=== PATIENT | male | born 1990 | race Caucasian/White ===

== ENCOUNTER 2021-03-27 17:35 | Observation (INO) | payer BC ==
[2021-03-27 20:12] LABS: Urine Blood Negative (Negative); Urine Glucose Negative (Negative); Urine Protein Negative (Negative); Urine Specific Gravity >=1.030 (1.005-1.030)
[2021-03-27 20:24] LABS: Absolute Lymphocytes (CBC) 1.9 K/uL (0.7-4.9); Basophils % 0.1 % (0-1.3); Hematocrit 45.9 % (39.6-49.0); Lymphocytes % 13.3 % (15.3-44.8); MPV 9.3 fL (7.6-11.3); RBC Red Blood Cell Count 5.59 M/uL (4.33-5.43)
[2021-03-27] MEDS ORDERED: NA CHLORIDE 0.9% 1,000 ML ONE ×2 (20:34→22:38)
[2021-03-27 20:52] LABS: ALT/SGPT 67 U/L (12-78); AST/SGOT 26 U/L (15-37); Albumin 4.6 g/dL (3.4-5.0); Alkaline Phosphatase 93 U/L (45-117); BUN Blood Urea Nitrogen 15 mg/dL (7-18); Bicarbonate 27 mmol/L (21-32); Bilirubin Direct < 0.1 mg/dL (0-0.2); Bilirubin Total 0.6 mg/dL (0.2-1.0); Glucose Level 100 mg/dL (74-106); Lipase 66 U/L (73-393); Protein, Total 8.1 g/dL (6.4-8.2); Sodium Level 138 mmol/L (136-145)
--- NOTE | 2021-03-27 21:46 | RAD REPORT ---
EXAM DESCRIPTION: CT - Abdomen Pelvis W Contrast - 03/27/2021 9:25 pm CLINICAL HISTORY: ABD PAIN COMPARISON: No comparisons TECHNIQUE: Biphasic, helical CT imaging of the abdomen and pelvis was performed following 100 ml non -ionic IV contrast. No oral contrast administered. All CT scans are performed using dose optimization technique as appropriate and may include automated exposure control or mA/KV adjustment according to patient size. FINDINGS: No suspicious findings in the lung bases. The liver, spleen, and pancreas show no suspicious findings. Gallbladder and biliary tree are also wi thout suspicious finding. Symmetric renal function is seen with no hydronephrosis or suspicious renal mass. No pyelonephritis o r acute parenchymal process. No bladder abnormalities. No adrenal abnormalities. No stomach or small bowel abnormality. The appendix is abnormal measuring 10 mm in diameter wall thic kening and edema. Periappendiceal inflammatory stranding is present. Mesenteric lymph nodes are seen in the right lower quadrant. There are central mesenteric small lymph nodes and multiple periaortic s mall reactive type lymph nodes. No free air or pneumatosis. No mass or bulky lymphadenopathy. Small fat only umbilical hernia is p resent 15 mm in diameter. No suspicious bony findings. IMPRESSION: Acute appendicitis is noted with the appendix in classic right lower quadrant positionin g. No abscess, free air or other complicating factor. Numerous reactive type periaortic/pericaval, central mesentery and right lower quadrant lymph nodes.
--- NOTE | 2021-03-27 22:02 | ER ---
Nurse's Notes [facility] Name: Franklin Garcia Age: 31 yrs Sex: Male : 1990 Arrival Date: 03/27/2021 Time: 17:39 Bed 14 Private MD: Diagnosis: Unspecified acute appendicitis Presentation: 03/27 17:48 Chief complaint: Patient states: RLQ pain started 0930 this morning. [place] feverish this ca1 morning. Denies N/V/D. Denies urinary S/S. Coronavirus screen: Client denies travel out of the [place] in the last 14 days. At this time, the client does not indicate any symptoms associated with coronavirus-19. Ebola Screen: Patient negative for fever greater than or equal to 101.5 degrees Fahrenheit, and additional compatible Ebola Virus Disease symptoms Patient denies exposure to infectious person. Patient denies travel to an Ebola-affected area in the 21 days before illness onset. No symptoms or risks identified at this time. Initial Sepsis Screen: Does the patient meet any 2 criteria? No. Patient's initial sepsis screen is negative. Does the patient have a suspected source of infection? No. Patient's initial sepsis screen is negative. Risk Assessment: Do you want to hurt yourself or someone else? Patient reports no desire to harm self or others. Onset of symptoms was March 27, 2021. 17:48 Method Of Arrival: Ambulatory ca1 17:48 Acuity: ZABRINA 3 ca1 Historical: - Allergies: 17:50 No Known Allergies; ca1 - Home Meds: 17:50 None [Active]; ca1 - PMHx: 17:50 None; ca1 - PSHx: 17:50 None; ca1 - Immunization history:: Client reports having NOT received the Covid vaccine. Flu vaccine is up to date. - Social history:: Smoking status: Patient denies any tobacco usage or history of. Screenin:00 Abuse screen: Denies threats or abuse. Denies injuries from another. Nutritional bs2 screening: No deficits noted. Tuberculosis screening: No symptoms or risk factors identified. Fall Risk None identified. Assessment: 20:00 General: Appears in no apparent distress. obese, well groomed, well developed, well bs2 nourished, Behavior is calm, cooperative, appropriate for age. Pain: Complains of pain in umbilical area and right lower quadrant Pain currently is 2 out of 10 on a pain scale. Pain began 2-3 days ago. Cardiovascular: No deficits noted. Respiratory: No deficits noted. Reports. GI: Bowel sounds present X 4 quads. Abd is soft X 4 quads Abdomen is tender to palpation in right lower quadrant. : No deficits noted. No signs and/or symptoms were reported regarding the genitourinary system. EENT: No deficits noted. No signs and/or symptoms were reported regarding the EENT system. Derm: No deficits noted. No signs and/or symptoms reported regarding the dermatologic system. Musculoskeletal: No deficits noted. No signs and/or symptoms reported regarding the musculoskeletal system. Vital Signs: 17:48 BP 136 / 89; Pulse 102; Resp 18 S; Temp 98.5(TE); Pulse Ox 98% on R/A; Weight 108.86 kg ca1 (R); Height 5 ft. 11 in. (180.34 cm) (R); Pain 610; 03/28 00:09 BP 125 / 68 RA Sitting (auto/lg); Pulse 78 MON; Resp 16 S; Temp 97.6(O); Pulse Ox 96% bs2 on R/A; Pain 0/10; 03/27 17:48 Body Mass Index 33.47 (108.86 kg, 180.34 cm) ca1 ED Course: 03/27 17:39 Patient arrived in ED. rg4 17:50 Triage completed. ca1 17:50 Arm band placed on right wrist. ca1 19:49 Randy Carrera NP is PHCP. pm1 19:49 Roberto Kumar MD is Attending Physician. pm1 19:52 Osiris Hernandez, SHAY is Primary Nurse. bs2 20:00 Patient has correct armband on for positive identification. Call light in reach. Side bs2 rails up X 1. Pulse ox on. NIBP on. 20:00 No provider procedures requiring assistance completed. Inserted saline lock: 20 gauge bs2 in right antecubital area, using aseptic technique. 20:05 CBC with Automated Diff Sent. bs2 20:05 Basic Metabolic Panel Sent. bs2 20:05 Basic Metabolic Panel Sent. bs2 20:05 CBC with Diff Sent. bs2 20:05 Hepatic Function Sent. bs2 20:05 Lipase Sent. bs2 21:24 CT Abd/Pelvis - IV Contrast Only In Process Unspecified. EDMS 22:01 Ankur Garcia PA is Hospitalizing Provider. pm1 22:56 COVID-19 : Document "Date of Symptom Onset" if Symptomatic. Sent. bs2 23:48 CORONAVIRUS Sent. bs2 Administered Medications: 20:16 Drug: NS 0.9% 1000 ml Route: IV; Rate: 1000 ml; Site: right antecubital; bs2 22:44 Follow up: IV Status: Completed infusion; IV Intake: 1000ml bs2 22:44 Drug: Zosyn (piperacillin-tazobactam) 3.375 grams Route: IVPB; Infused Over: 60 mins; bs2 Site: left antecubital; 23:48 Follow up: IV Status: Completed infusion; IV Intake: 250ml bs2 22:44 Drug: NS 0.9% 1000 ml Route: IV; Rate: 125 ml/hr; Site: left antecubital; bs2 Intake: 22:44 IV: 1000ml; Total: 1000ml. bs2 23:48 IV: 250ml; Total: 1250ml. bs2 Outcome: 22:01 Decision to Hospitalize by Provider. pm1 03/28 14:28 Patient left the ED. ss Signatures: Dispatcher [employer] EDMS Magui Means RN RN ss Randy Carrera, INTEGRATED CIRCUIT FABRICATOR INTEGRATED CIRCUIT FABRICATOR pm1 Laura Cuevas rg4 Ginger Hilliard RN RN ca1 Osiris Hernandez RN RN bs2 Corrections: (The following items were deleted from the chart) 03/27 17:50 17:50 Home Meds: Unable to obtain; ca1 ca1
--- NOTE | 2021-03-27 22:02 | EDPHYS ---
Physician Documentation [facility] Name: Franklin Garcia Age: 31 yrs Sex: Male : 1990 Arrival Date: 03/27/2021 Time: 17:39 Bed 14 Private MD: MYNOR Physician Roberto Kumar HPI: 03/27 20:03 This 31 yrs old Male presents to ER via Ambulatory with complaints of pm1 Abdominal Pain. 20:03 The patient presents with abdominal pain right lower quadrant. Onset: The pm1 symptoms/episode began/occurred this morning. The symptoms do not radiate. Associated signs and symptoms: none. Pertinent negatives: nausea, vomiting, and diarrhea, chest pain, dysuria, fever, shortness of breath. The symptoms are described as sharp. Modifying factors: The symptoms are alleviated by nothing, the symptoms are aggravated by nothing. Severity of pain: in the emergency department the pain is actually worse. The patient has not experienced similar symptoms in the past. The patient has not recently seen a physician, the patient's primary care provider is Dr. Johnnie Sexton. NPO since 1600 today. Historical: - Allergies: 17:50 No Known Allergies; ca1 - Home Meds: 17:50 None [Active]; ca1 - PMHx: 17:50 None; ca1 - PSHx: 17:50 None; ca1 - Immunization history:: Client reports having NOT received the Covid vaccine. Flu vaccine is up to date. - Social history:: Smoking status: Patient denies any tobacco usage or history of. ROS: 20:03 Constitutional: Negative for fever, chills, and weight loss, Cardiovascular: Negative pm1 for chest pain, palpitations, and edema, Respiratory: Negative for shortness of breath, cough, wheezing, and pleuritic chest pain. 20:03 Back: Negative for injury and pain, : Negative for injury, bleeding, discharge, and swelling, MS/Extremity: Negative for injury and deformity, Skin: Negative for injury, rash, and discoloration, Neuro: Negative for headache, weakness, numbness, tingling, and seizure. 20:03 Abdomen/GI: Positive for abdominal pain, Negative for nausea, vomiting, and diarrhea. 20:03 All other systems are negative. Exam: 20:03 Constitutional: This is a well developed, well nourished patient who is awake, alert, pm1 and in no acute distress. Head/Face: Normocephalic, atraumatic. 20:03 Back: No spinal tenderness. No costovertebral tenderness. Full range of motion. Skin: Warm, dry with normal turgor. Normal color with no rashes, no lesions, and no evidence of cellulitis. MS/ Extremity: Pulses equal, no cyanosis. Neurovascular intact. Full, normal range of motion. 20:03 Eyes: Exam is negative for acute changes, Periorbital structures: appear normal, Extraocular movements: no acute changes, Conjunctiva: no acute changes, no injection, Sclera: no acute changes, icterus, is not appreciated. 20:03 ENT: Mouth: Lips: normal, Oral mucosa: normal, pink and intact, moist. 20:03 Cardiovascular: Exam negative for acute changes, Rate: normal, Rhythm: regular, Pulses: no pulse deficits are appreciated. 20:03 Respiratory: Exam negative for acute changes, respiratory distress, shortness of breath. 20:03 Abdomen/GI: Inspection: abdomen appears normal, Palpation: soft, in all quadrants, mild abdominal tenderness, in the right lower quadrant. 20:03 Neuro: Exam negative for acute changes, Orientation: is normal, Mentation: is normal, Motor: is normal, moves all fours, Sensation: is normal, no obvious gross deficits. Vital Signs: 17:48 BP 136 / 89; Pulse 102; Resp 18 S; Temp 98.5(TE); Pulse Ox 98% on R/A; Weight 108.86 kg ca1 (R); Height 5 ft. 11 in. (180.34 cm) (R); Pain 6/10; 03/28 00:09 BP 125 / 68 RA Sitting (auto/lg); Pulse 78 MON; Resp 16 S; Temp 97.6(O); Pulse Ox 96% bs2 on R/A; Pain 0/10; 03/27 17:48 Body Mass Index 33.47 (108.86 kg, 180.34 cm) ca1 MDM: 03/27 19:49 Patient medically screened. pm1 19:57 ED course: Patient offered pain medications and he refused. pm1 21:45 Counseling: I had a detailed discussion with the patient and/or guardian regarding: the pm1 historical points, exam findings, and any diagnostic results supporting the discharge/admit diagnosis, lab results, radiology results, the need for further work-up and treatment in the hospital. 21:53 Data reviewed: vital signs. pm1 21:58 Physician consultation: Liam Apodaca MD was called at 21:58, was contacted at 21:58, pm1 regarding consult, patient's condition, would like medications started, Zosyn. 22:00 Physician consultation: Ankur SMITH was contacted at 22:00, regarding admission, pm1 and will see patient in ED. 22:01 ED course: Patient reports pain is tolerable and continues to refuse pain medications. pm03/27 19:54 Order name: Basic Metabolic Panel pm03/27 19:54 Order name: CBC with Diff pm03/27 19:54 Order name: Hepatic Function; Complete Time: 21:08 pm03/27 19:54 Order name: Lipase; Complete Time: 21:08 pm03/27 19:55 Order name: Basic Metabolic Panel; Complete Time: 21:08 ED03/27 19:55 Order name: CBC with Automated Diff; Complete Time: 20:30 ED03/27 20:12 Order name: Urine Dipstick-Ancillary; Complete Time: 20:23 ED03/27 22:27 Order name: COVID-19 : Document "Date of Symptom Onset" if Symptomatic. 2 03/27 23:12 Order name: CORONAVIRUS 03/28 00:06 Order name: SARS-COV-2 RT PCR; Complete Time: 01:12 03/28 06:05 Order name: CBC with Automated Diff; Complete Time: 14:15 03/28 06:25 Order name: Comprehensive Metabolic Panel; Complete Time: 14:15 03/28 06:25 Order name: Phosphorus; Complete Time: 14:15 03/28 06:25 Order name: Lipid Profile; Complete Time: 14:15 ED03/27 19:54 Order name: IV Saline Lock; Complete Time: 20:05 pm03/27 19:54 Order name: Labs collected and sent; Complete Time: 20:05 pm03/27 19:54 Order name: Urine Dipstick-Ancillary (obtain specimen); Complete Time: 20:16 pm03/27 19:55 Order name: CT Abd/Pelvis - IV Contrast Only; Complete Time: 21:53 pm1 03/27 21:57 Order name: NPO; Complete Time: 22:44 pm1 03/27 22:15 Order name: CONS Physician Consult EDWI 03/28 06:25 Order name: T4 Free; Complete Time: 14:15 EDMS 03/28 06:25 Order name: Magnesium; Complete Time: 14:15 EDMS 03/28 06:25 Order name: Thyroid Stimulating Hormone; Complete Time: 14:15 EDMS Administered Medications: 20:16 Drug: NS 0.9% 1000 ml Route: IV; Rate: 1000 ml; Site: right antecubital; bs2 22:44 Follow up: IV Status: Completed infusion; IV Intake: 1000ml bs2 22:44 Drug: Zosyn (piperacillin-tazobactam) 3.375 grams Route: IVPB; Infused Over: 60 mins; bs2 Site: left antecubital; 23:48 Follow up: IV Status: Completed infusion; IV Intake: 250ml bs2 22:44 Drug: NS 0.9% 1000 ml Route: IV; Rate: 125 ml/hr; Site: left antecubital; bs2 Disposition: 03/29 07:05 Co-signature as Attending Physician, Roberto Kumar MD I agree with the assessment and south plan of care. Disposition Summary: 03/27/21 22:01 Hospitalization Ordered Hospitalization Status: Observation pm1 Provider: Ankur Garcia pm1 Condition: Stable pm1 Problem: new pm1 Symptoms: have improved pm1 Bed/Room Type: Standard pm1 Location: Telemetry/MedSurg (observation)(03/28/21 14:03) pa Room Assignment: [facility](03/28/21 14:03) pa Diagnosis - Unspecified acute appendicitis pm1 Forms: - Medication Reconciliation Form pm1 - SBAR form pm1 Signatures: Dispatcher [employer] Roberto Méndez MD MD cha Garcia, Cindy RN RN Randy Schneider NP PET CARE ATTENDANT pm1 Adelita Garcia mt, Cheryl, RN RN ca1 Osiris Hernandez RN RN bs2 Corrections: (The following items were deleted from the chart) 03/27 17:50 17:50 Home Meds: Unable to obtain; ca1 ca1 22:27 22:01 Telemetry/MedSurg (observation) pm1 cg 22:27 22:01 pm1 03/28 14:03 03/27 22:27 [facility] ER HOLD cg mt 03/28 14:03/27 22:27 ERHOLD- cg mt
[2021-03-27] MEDS ORDERED: PIPERACIL/TAZO 3.375 GM VIAL IV ONE (22:36)
[2021-03-27] MEDS ORDERED: NA CHLORIDE 0.9% 250 ML ONE (22:36)
--- NOTE | 2021-03-28 03:48 | P.HP ---
Certification for Inpatient Patient admitted to: Inpatient With expected LOS: >2 Midnights Patient will require the following post-hospital care: None Practitioner: I am a practitioner with admitting privileges, knowledge of patient current condition, hospital course, and medical plan of care. Services: Services provided to patient in accordance with Admission requirements found in Title 42 Section 412.3 of the Code of Federal Regulations Patient History Date of Service: 03/27/21 Primary Care Provider: Darshan Reason for admission: appendicitis History of Present Illness: Mr. Garcia is a 31 yo M here today for RLQ abdominal pain. Pain initially began on Saturday and lasted for 8 hours before resolving. Today he felt a sharp pain in his umbilical area which migrated to lower right side and went from sharp to dull pain. Pain worse with movement and breathing. Relieved by bending over. Denies nausea, vomiting, fever. WBC 14.3. Ct scan shows acute appendicitis. Allergies No Known Allergies Allergy (Unverified 10/12/12 17:53) - Past Medical/Surgical History Diabetic: No Past Medical History: Patient denies medical history Past Surgical History: Patient denies surgical history - Family History Family History: Reviewed- Non-Contributory - Social History Smoking Status: Never smoker Alcohol use: Yes CD- Drugs: No Caffeine use: No Place of Residence: Home Review of Systems 10-point ROS is otherwise unremarkable Gastrointestinal: Abdominal Pain Physical Examination - Physical Exam General: Alert, In no apparent distress HEENT: Atraumatic, PERRLA, Mucous membr. moist/pink, EOMI, Sclerae nonicteric Neck: Supple, 2+ carotid pulse no bruit, No LAD, Without JVD or thyroid abnormality Respiratory: Clear to auscultation bilaterally, Normal air movement Cardiovascular: Regular rate/rhythm, Normal S1 S2 Gastrointestinal: Normal bowel sounds, Tenderness Musculoskeletal: No tenderness Integumentary: No rashes Neurological: Normal gait, Normal speech, Normal strength at 5/5 x4 extr, Normal tone, Normal affect Lymphatics: No axilla or inguinal lymphadenopathy - Studies Laboratory Data (last 24 hrs) 03/27/21 20:00: WBC 14.30 H, Hgb 15.8, Hct 45.9, Plt Count 226 03/27/21 20:00: Sodium 138, Potassium 4.0, BUN 15, Creatinine 0.97, Glucose 100, Total Bilirubin 0.6, AST 26, ALT 67, Alkaline Phosphatase 93, Lipase 66 L Assessment and Plan - Plan Assessment acute appendicitis Plan surgery consulted, NPO, continue IVF, continue IV abx, pain management as needed, SCDs Discharge Plan: Home Plan to discharge in: 48 Hours - Advance Directives Does patient have a Living Will: No Does patient have a Durable POA for Healthcare: No - Code Status/Comfort Care Code Status Assessed: Yes (full code ) Critical Care: No Time Spent Managing Pts Care (In Minutes): 70
[2021-03-28] MEDS ORDERED: NA CHLORIDE 0.9% 1,000 ML IV SCH (03:50)
[2021-03-28] MEDS ORDERED: ONDANSETRON 4 MG/2 ML VIAL IV PRN (03:50)
[2021-03-28] MEDS ORDERED: MORPHINE 2 MG/ML SYR IV PRN (03:50)
[2021-03-28] MEDS ORDERED: NA CHLORIDE 0.9% 1,000 ML ONE (04:48)
[2021-03-28 05:57] LABS: Basophils % 0.4 % (0-1.3); Hematocrit 43.5 % (39.6-49.0); Lymphocytes % 25.2 % (15.3-44.8); MPV 9.2 fL (7.6-11.3); RBC Red Blood Cell Count 5.18 M/uL (4.33-5.43)
[2021-03-28 06:24] LABS: ALT/SGPT 55 U/L (12-78); AST/SGOT 23 U/L (15-37); Albumin 3.9 g/dL (3.4-5.0); Alkaline Phosphatase 77 U/L (45-117); BUN Blood Urea Nitrogen 14 mg/dL (7-18); Bicarbonate 28 mmol/L (21-32); Bilirubin Total 0.9 mg/dL (0.2-1.0); Glucose Level 91 mg/dL (74-106); HDL Cholesterol 36 mg/dL (40-60); LDL Cholesterol, Calculated 127 (<130); Magnesium 2.2 mg/dL (1.8-2.4); Phosphorus 3.5 mg/dL (2.5-4.9); Potassium 3.9 mmol/L (3.5-5.1); Sodium Level 142 mmol/L (136-145)
[2021-03-28] MEDS ORDERED: PIPER/TAZO/NS 3.375gm 3.375 GM/100 ML BAG IVPB SCH ×2 (08:00→17:00)
[2021-03-28 08:35] VITALS: BMI 33.4
[2021-03-28] MEDS ORDERED: PIPERACIL/TAZO 3.375 GM VIAL IV ONE (09:00)
[2021-03-28] MEDS ORDERED: Ringers Lactate 1,000 ML IV ONE (13:35)
[2021-03-28] MEDS ORDERED: BUPIVACAINE 0.25% PF 30 ML VIAL ONE (13:40)
[2021-03-28] MEDS ORDERED: propofoL 200 MG/20 ML VIAL IV ONE (13:47)
[2021-03-28] MEDS ORDERED: ROCURONIUM 50 MG/5 ML VIAL IV ONE (13:47)
[2021-03-28] MEDS ORDERED: KETOROLAC 30 MG/ML INJ ONE (13:47)
[2021-03-28] MEDS ORDERED: ONDANSETRON 4 MG/2 ML VIAL ONE (13:47)
[2021-03-28] MEDS ORDERED: FENTANYL CITR 100 MCG/2 ML ONE ×2 (13:47→15:03)
[2021-03-28] MEDS ORDERED: dexAMETHasone 10 MG/ML VIAL ONE (13:47)
[2021-03-28] MEDS ORDERED: LIDOCAINE 2% MPF 5 ML VIAL ONE (13:47)
[2021-03-28] MEDS ORDERED: MIDAZOLAM HCL 2 MG/2 ML INJ ONE (13:47)
--- NOTE | 2021-03-28 14:31 | P.OP ---
Preoperative diagnosis: Acute non-perforated appendicitis Postoperative diagnosis: Acute non-perforated appendicitis Primary procedure: Laparoscopic Appendectomy Anesthesia: GETA + Local Estimated blood loss: <5cc Specimen: appendix Findings: Acute non-perforated appendicitis Complications: None Transferred to: Recovery Room Condition: Good
[2021-03-28] MEDS ORDERED: NEOSTIGMINE 1 MG/ML -5 ML ONE (14:50)
[2021-03-28] MEDS ORDERED: HYDROMORPHONE HCL 1 MG/ML INJ ONE (15:25)
[2021-03-28 15:42] VITALS: TEMP 97.7
[2021-03-28] MEDS ORDERED: HYDROCODONE/APAP 7.5/325 MG TAB PO ONE (16:00)
--- NOTE | 2021-03-28 16:12 | P.DS ---
Admission Date: 03/27/21 Discharge Date: 03/28/21 Primary Care Provider: Darshan Disposition: ROUTINE DISCHARGE Discharge Condition: GOOD Reason for Admission: appendicitis - Problems (1) Acute appendicitis Current Visit: Yes Status: Acute Brief History of Present Illness: 31-year-old gentleman with no known past medical history presented to the emergency department with a complaint of intermittent right lower quadrant pain which became worse, with involvement of the periumbilical area. CT abdomen and pelvis done in the emergency department demonstrated acute appendicitis. General surgery was consulted and patient hospitalized for further management. Hospital Course: Patient placed under observation on the medical floor and started on IV antibiotics and supportive measures with IV NS and IV morphine for pain. Patient seen by Dr. Apodaca and laparoscopic appendectomy performed. Patient d eemed stable for discharge after the surgery and was discharged from the recovery department. Vital Signs/Physical Exam: Temp Pulse Resp BP Pulse Ox 97.7 F 62 16 138/83 95 03/28/21 15:28 03/28/21 15:28 03/28/21 15:28 03/28/21 15:28 03/28/21 12:00 Laboratory Data at Discharge: WBC 8.00 K/uL (4.3-10.9) D 03/28/21 05:26 Hgb 14.6 g/dL (13.6-17.9) 03/28/21 05:26 Hct 43.5 % (39.6-49.0) 03/28/21 05:26 Plt Count 204 K/uL (152-406) 03/28/21 05:26 Sodium 142 mmol/L (136-145) 03/28/21 05:26 Potassium 3.9 mmol/L (3.5-5.1) 03/28/21 05:26 BUN 14 mg/dL (7-18) 03/28/21 05:26 Creatinine 0.94 mg/dL (0.55-1.3) 03/28/21 05:26 Glucose 91 mg/dL (74-106) 03/28/21 05:26 Phosphorus 3.5 mg/dL (2.5-4.9) 03/28/21 05:26 Magnesium 2.2 mg/dL (1.8-2.4) 03/28/21 05:26 Total Bilirubin 0.9 mg/dL (0.2-1.0) 03/28/21 05:26 AST 23 U/L (15-37) 03/28/21 05:26 ALT 55 U/L (12-78) 03/28/21 05:26 Alkaline Phosphatase 77 U/L (45-117) 03/28/21 05:26 Triglycerides 144 mg/dL (<150) 03/28/21 05:26 Cholesterol 192 mg/dL (<200) 03/28/21 05:26 HDL Cholesterol 36 mg/dL (40-60) L 03/28/21 05:26 Cholesterol/HDL Ratio 5.33 03/28/21 05:26 Lipase 66 U/L (73-393) L 03/27/21 20:00 Home Medications: Sertraline [Zoloft*] 50 mg PO DAILY 03/28/21 buPROPion HCL [Wellbutrin*] 100 mg PO DAILY 03/28/21 Diet: Regular Activity: Ad mike Followup: Liam Apodaca MD [ACTIVE - CAN ADMIT] - Alejandro Sexton MD [Primary Care Provider] -
[2021-03-28] MEDS ORDERED: HYDROCODONE/APAP 7.5/325 MG TAB ONE (16:17)
[2021-03-28 16:51] VITALS: BP 136/73; O2SAT 96
--- NOTE | 2021-03-28 18:36 | CON ---
Date of Consultation: 03/28/2021 Brief History Of Present Illness: The patient is a 31-year-old male who complains of periumbilical a bdominal pain beginning on Saturday. It got progressively worse and then significantly improved and go t complete resolution after approximately 24 hours. However, he had recurrence of his symptoms yeste rday and they got significantly worse, much more sharp, much more intense and as such, he came to the emergency room with the above-stated complaints. The pain since coming to the hospital had migrated from the periumbilical area to the right lower quadrant. He was seen in the ER, evaluated and found to have CT evidence of acute appendicitis. Past Medical History: Negative. Past Surgical History: Negative. Social History: He denies smoking. Drinks alcohol only socially. Denies recreational drug use. 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 Review of Systems: Ten-point review of systems other than HPI, denies. Medications: None. Allergies: NO KNOWN DRUG ALLERGIES. Physical Examination: At the time examination: General: He is awake, alert, and oriented. Psychiatric: He is appropriate, conversive. HEENT: Normocephalic. Sclerae are anicteric. Mucous membranes are moist. Oropharynx is clear. Neck: Supple without JVD. Chest: Normal expansion and excursion. Cardiovascular: Regular rate and rhythm. Pulmonary: Clear to auscultation bilaterally. Abdomen: Soft with positive right lower quadrant focal peritonitis and McBurney's point consistent w ith acute appendicitis. Extremities: No clubbing, cyanosis, or edema. Skin: Warm and dry. Vital Signs: Blood pressure 129/80, pulse 68, respiratory rate 15, temperature 98.1, pulse ox 100% o n room air. Laboratory Data: Reveals a white blood cell count of 8.0, hemoglobin was 14.6, hematocrit 43.5, plat elet count was 204. His white blood cell count on admission was 14.3. Sodium 142, potassium 3.9, ch loride 106, carbon dioxide 28, BUN 14, creatinine 0.9, glucose was 91, AST 23, ALT 55, alkaline phosp hatase 77, bilirubin 0.9. His lipase was 66 on admission. He had a CT scan performed of the abdomen and pelvis. In addition, he had urinalysis, which was essentially negative. CT scan of the abdomen and pelvis official dictation shows acute appendicitis noted with the appendix in a classic right lo wer quadrant positioning. No abscess, free air, or other complicating factors. Numerous periaortic, pericaval, central mesenteric, right lower quadrant lymph nodes noted. Assessment/plan: A 31-year-old male who comes in with classic signs and symptoms of acute appendicit is. 1.IV fluid hydration. 2.Antibiotic coverage with Zosyn. 3.I have explained the risks, benefits, and alternatives of laparoscopic possible open appendectomy including, but not limited to bleeding, infection, damage to surrounding tissues, need for the furthe r operation and procedure. The patient agrees to proceed as indicated. Thank you for this interesting consult. JUANITA/DODIE Voice ID: [id number] Report ID: [id number]
--- NOTE | 2021-03-29 01:46 | OP ---
Date of Procedure: 03/28/2021 Surgeon: Liam Apodaca MD, Preoperative Diagnosis: Acute nonperforated appendicitis. Postoperative Diagnosis: Acute nonperforated appendicitis. Procedure Performed: Laparoscopic appendectomy. Anesthesia: General endotracheal plus local with 0.25% Marcaine. Estimated Blood Loss: Less than 5 mL. Specimen: Vermiform appendix. Findings: Acute nonperforated appendicitis. Complications: None. Disposition: Patient transferred to recovery room in good condition. Procedure In Detail: After informed consent was obtained, the patient was brought to the operating r oom, prepped and draped in the usual sterile fashion after adequate anesthesia was achieved. An infr aumbilical area was anesthetized with 0.25% Marcaine and sharply incised. A 5 mm 0-degree optical tr ocar was introduced in the abdomen without any evidence of complication. Insufflation was obtained t o 15 mmHg at this time. No injury to vital structures upon entry of the abdomen. Two additional tro cars were placed, 1 in the suprapubic area and 1 in the right lower quadrant. Both of these similarl y anesthetized and sharply incised. 5 mm trocars were introduced in the abdomen without evidence of complication. The umbilical trocar was then up-sized to a 12 mm under direct visualization without e vidence of complication. The patient was positioned head down with right side up position. Ratchete d grasper was used to grasp the patient's appendix and elevated. A mesoappendiceal window was create d with the [place] retractor. Endo CANDICE 35 blue load fired across the base of the appendix with good apposition of the tissues. There was no bleeding from the staple line at this point. The LigaSure device was then used to take the mesoappendix down without evidence of complication. The appendix wa s then placed in an EndoCatch bag and removed through the umbilical trocar and sent off for pathologi c examination. The right lower quadrant was then copiously irrigated multiple times and suctioned ou t until completely clear. The pelvis was suctioned out as well. No additional murky fluid was appre ciated. The appendix was sent off for pathologic examination. At this point, the patient was positi oned back in neutral position. The remaining effluent was suctioned out. The umbilical trocar site was closed using a Cedrick-Marcia suture passer with 0 Vicryl in interrupted fashion with good appro ximation of tissues. The abdomen was completely desufflated under direct visualization without evide nce of complication. Remaining trocars were removed. The skin incision was then copiously irrigated and closed with a combination of deep dermal 3-0 Vicryl interrupted sutures as well as a running 4-0 Monocryl and Dermabond placed over top. The patient tolerated the procedure well without evidence o f complication and transferred to PACU in good condition. All counts were correct at the end of the case. JUANITA/DODIE Voice ID: [id number] Report ID: [id number]
== END 2021-03-28 16:40 | disposition home or self-care (01) ==
LOC: ER 17:35 → ERHOLD 22:14 → INTOOBSV 22:14 → ERHOLD 03-28 14:09 → 2ND 03-28 14:09
PROVIDERS: ADMIT Internal Medicine; ATTEND Internal Medicine
PROC: 0DTJ4ZZ Resection of Appendix, Percutaneous Endoscopic Approach (ICD-10-PCS; principal; 2021-03-28 12:00)
DX: K35.80 Unspecified acute appendicitis (principal); Z20.822 Contact with and (suspected) exposure to COVID-19
CPT/HCPCS: 85025 ×2; 80048; 36415; 83735; 84100; 80061; 80076; 88304; 84443; 81003; 84439; 83690; 80053; 74177; 94760; 44970; U0003; Q9967; J2704; J2543; J2250; J3010 ×2; J1100; J1170; J2710; J7120; J7050; J7030 ×3; J2405; G0378 ×3; 96361; 96365; 99284

== ENCOUNTER 2021-05-07 15:26 | Emergency (ER) | payer BC ==
[2021-05-07] MEDS ORDERED: ACETAMINOPHEN 500 MG TAB ONE (17:36)
--- NOTE | 2021-05-07 19:39 | RAD REPORT ---
EXAM DESCRIPTION: RAD - Chest Single View - 05/07/2021 6:29 pm CLINICAL HISTORY: SOB COMPARISON: September 2012 TECHNIQUE: AP portable chest image was obtained 05/07/2021 6:29 pm . FINDINGS: No large mass or dense consolidation. No failure or volume overload findings. Interstitial and hazy alveolar opacities are present minimal in degree. Trachea is midline. Heart and vasculature are normal. No measurable pleural effusion and no pneumotho rax. No acute bony abnormality seen. No acute aortic findings suspected. IMPRESSION: Increased interstitial markings and patchy minimal alveolar opacities are present. Findings are minimal but a mild bilateral pneumonia including COVID 19 pneumonia would be possible.
[2021-05-07] MEDS ORDERED: AZITHROMYCIN 500 MG INJ IVPB ONE (21:01)
[2021-05-07] MEDS ORDERED: ALBUTEROL 2.5 MG/3 ML NEB SOL ONE (21:01)
[2021-05-07] MEDS ORDERED: CEFTRIAXONE/SWI 1gm 1 GM/10 ML SYR ONE (21:01)
[2021-05-07] MEDS ORDERED: NA CHLORIDE 0.9% 250 ML ONE (21:01)
[2021-05-07] MEDS ORDERED: NA CHLORIDE 0.9% 1,000 ML ONE (21:02)
[2021-05-07 21:20] LABS: Absolute Lymphocytes (CBC) 1.5 K/uL (0.7-4.9); Basophils % 0.3 % (0-1.3); Hematocrit 38.4 % (39.6-49.0); Lymphocytes % 28.7 % (15.3-44.8); MPV 7.3 fL (7.6-11.3); RBC Red Blood Cell Count 4.71 M/uL (4.33-5.43)
[2021-05-07 21:27] LABS: Protime INR 1.37
[2021-05-07 21:41] LABS: ALT/SGPT 49 U/L (12-78); AST/SGOT 21 U/L (15-37); Albumin 4.1 g/dL (3.4-5.0); Alkaline Phosphatase 124 U/L (45-117); BUN Blood Urea Nitrogen 13 mg/dL (7-18); Bicarbonate 27 mmol/L (21-32); Bilirubin Direct 0.2 mg/dL (0-0.2); Bilirubin Total 0.7 mg/dL (0.2-1.0); Glucose Level 89 mg/dL (74-106); Magnesium 2.4 mg/dL (1.8-2.4); NT PRO-BNP 20 pg/mL (<125); Potassium 3.6 mmol/L (3.5-5.1); Protein, Total 7.6 g/dL (6.4-8.2); Sodium Level 138 mmol/L (136-145); Troponin (Emerg Dept Use Only) < 0.02 ng/mL (0.0-0.045)
--- NOTE | 2021-05-07 23:21 | ER ---
Nurse's Notes [facility] Name: Franklin Garcia Age: 31 yrs Sex: Male : 1990 Arrival Date: 05/07/2021 Time: 15:29 Bed DIS3 Private MD: Diagnosis: Pneumonia, unspecified organism Presentation: 05/07 17:07 Chief complaint: Patient states: SOB, Cough x 3 days. Dizziness x 4 days. Pt took two kg at home COVID test and both negative. Coronavirus screen: Client denies travel out of the [place] in the last 14 days. At this time, unable to obtain information related to travel outside the [place] Client presents with at least one sign or symptom that may indicate coronavirus-19. Standard/surgical mask placed on the client. Provider contacted for isolation considerations. Ebola Screen: Patient negative for fever greater than or equal to 101.5 degrees Fahrenheit, and additional compatible Ebola Virus Disease symptoms Patient denies exposure to infectious person. Patient denies travel to an Ebola-affected area in the 21 days before illness onset. Initial Sepsis Screen: Does the patient meet any 2 criteria? No. Patient's initial sepsis screen is negative. Does the patient have a suspected source of infection? No. Patient's initial sepsis screen is negative. Risk Assessment: Do you want to hurt yourself or someone else? Patient reports no desire to harm self or others. Onset of symptoms was April 16, 2021. 17:07 Method Of Arrival: Ambulatory kg 17:07 Acuity: ZABRINA 4 kg Triage Assessment: 17:08 General: Appears in no apparent distress. Behavior is calm, cooperative, appropriate kg for age, quiet. Pain: Complains of pain in chest Pain currently is 2 out of 10 on a pain scale. at worst was 2 out of 10 on a pain scale. Respiratory: Reports shortness of breath at rest on exertion since 04/16/2021 cough that is non-productive, Onset: The symptoms/episode began/occurred gradually, the patient has mild shortness of breath. Historical: - Allergies: 17:08 No Known Allergies; kg - Home Meds: 17:08 Zoloft 25 mg Oral tab [Active]; Wellbutrin 75 mg Oral tab [Active]; kg - PMHx: 17:08 Depressive disorder; kg - PSHx: 17:08 Appendectomy; kg - Immunization history:: Adult Immunizations Client reports having NOT received the Covid vaccine. - Social history:: Smoking status: Patient denies any tobacco usage or history of. Patient uses alcohol, weekly. Screenin:10 Abuse screen: Denies threats or abuse. Denies injuries from another. Nutritional kg screening: No deficits noted. Tuberculosis screening: No symptoms or risk factors identified. Fall Risk None identified. Assessment: 23:11 Reassessment: Patient appears in no apparent distress at this time. Patient and/or em family updated on plan of care and expected duration. Pain level reassessed. Patient is alert, oriented x 3, equal unlabored respirations, skin warm/dry/pink. Patient states feeling better. Vital Signs: 17:07 BP 127 / 83; Pulse 90; Resp 20; Temp 101.0(O); Pulse Ox 98% on R/A; Weight 108.86 kg kg (R); Height 5 ft. 11 in. (180.34 cm) (R); Pain 2/10; 17:07 Body Mass Index 33.47 (108.86 kg, 180.34 cm) kg ED Course: 15:29 Patient arrived in ED. as 17:08 Triage completed. kg 17:08 Arm band placed on right wrist. kg 17:10 Patient has correct armband on for positive identification. kg 17:10 No provider procedures requiring assistance completed. kg 17:16 Flu Sent. kg 18:28 Chest Single View In Process Unspecified. EDMS 19:29 Amadeo Lemus MD is Attending Physician. mh7 20:00 Initial lab(s) drawn, by md, sent to lab. Inserted saline lock: 20 gauge in right em antecubital area, using aseptic technique. Blood collected. 20:32 José Newell, SHAY is Primary Nurse. em 23:20 Abe Ford MD is Referral Physician. mh7 23:37 IV discontinued, intact, bleeding controlled, No redness/swelling at site. Pressure em dressing applied. Administered Medications: 17:16 Drug: Tylenol 1000 mg Route: PO; kg 21:11 Follow up: Response: No adverse reaction em 21:00 Drug: Albuterol 2.5 mg Route: Inhalation; em 21:53 Follow up: Response: No adverse reaction; Marked relief of symptoms em 21:06 Drug: Rocephin (cefTRIAXone) 1 grams Route: IV; Rate: per protocol; Site: right em antecubital; 21:53 Follow up: Response: No adverse reaction; IV Status: Completed infusion; IV Intake: 10mlem 21:06 Drug: AZITHromycin 500 mg Route: IVPB; Infused Over: 1 hrs; Site: right antecubital; em 21:19 Drug: NS 0.9% 1000 ml Route: IV; Rate: 1000 ml; Site: right antecubital; em Intake: 21:53 IV: 10ml; Total: 10ml. em Outcome: 23:21 Discharge ordered by . yolande 23:36 Discharged to home ambulatory. em 23:36 Condition: stable 23:36 Discharge instructions given to patient, Instructed on discharge instructions, follow up and referral plans. medication usage, Demonstrated understanding of instructions, follow-up care, medications, Prescriptions given X 3. 23:38 Patient left the ED. em Signatures: Dispatcher [employer] EDMS José Newell RN RN em Britta Judd Maurice, MD MD [facility] Priti Luna RN RN kg Corrections: (The following items were deleted from the chart) 18:05 17:16 CORONAVIRUS+MR.LAB.BRZ drawn and sent. kg EDMS
--- NOTE | 2021-05-07 23:21 | EDPHYS ---
Physician Documentation [facility] Name: Franklin Garcia Age: 31 yrs Sex: Male : 1990 Arrival Date: 05/07/2021 Time: 15:29 Bed DIS3 Private MD: ED Physician Amadeo Lemus HPI: 05/07 19:30 This 31 yrs old Male presents to ER via Ambulatory with complaints of mh7 Shortness Of Breath, Cough, Dizziness. 19:30 The patient has shortness of breath at rest, with light activity. Onset: The mh7 symptoms/episode began/occurred 3 week(s) ago, and became worse 3 day(s) ago. Duration: The symptoms are intermittent, with no pattern. The patient's shortness of breath is aggravated by coughing, exertion, light activity, is alleviated by nothing. Associated signs and symptoms: Pertinent positives: chest pain, non-productive cough, dizziness, fever, Pertinent negatives: productive cough, diaphoresis, hemoptysis, loss of consciousness, nausea, numbness in extremities, visual changes, vomiting. Severity of symptoms: At their worst the symptoms were moderate 3 day(s) ago, in the emergency department the symptoms are unchanged. 19:30 Patient states that he has had shortness of breath intermittently for 3 weeks. He has mh7 also had coughing and intermittent dizziness. He states symptoms are worsening for the past 3 days. He is also noticed fever intermittently and sores in his throat. He reports having an appendectomy about 6 weeks ago. He denies any abdominal pain, nausea, vomiting, diarrhea, dysuria, numbness/tingling, or weakness. He has tried taking NyQuil for his symptoms without relief.. Historical: - Allergies: 17:08 No Known Allergies; kg - Home Meds: 17:08 Zoloft 25 mg Oral tab [Active]; Wellbutrin 75 mg Oral tab [Active]; kg - PMHx: 17:08 Depressive disorder; kg - PSHx: 17:08 Appendectomy; kg - Immunization history:: Adult Immunizations Client reports having NOT received the Covid vaccine. - Social history:: Smoking status: Patient denies any tobacco usage or history of. Patient uses alcohol, weekly. ROS: 19:30 Eyes: Negative for injury, pain, redness, and discharge. mh7 19:30 Neck: Negative for injury, pain, and swelling, Abdomen/GI: Negative for abdominal pain, nausea, vomiting, diarrhea, and constipation, Back: Negative for injury and pain, : Negative for injury, bleeding, discharge, and swelling, MS/Extremity: Negative for injury and deformity, Skin: Negative for injury, rash, and discoloration, Neuro: Negative for headache, weakness, numbness, tingling, and seizure, Psych: Negative for depression, anxiety, suicide ideation, homicidal ideation, and hallucinations, Allergy/Immunology: Negative for hives, rash, and allergies, Endocrine: Negative for neck swelling, polydipsia, polyuria, polyphagia, and marked weight changes, Hematologic/Lymphatic: Negative for swollen nodes, abnormal bleeding, and unusual bruising. 19:30 ENT: Positive for sore throat. Exam: 19:30 Constitutional: This is a well developed, well nourished patient who is awake, alert, mh7 and in no acute distress. Head/Face: Normocephalic, atraumatic. Eyes: Pupils equal round and reactive to light, extra-ocular motions intact. Lids and lashes normal. Conjunctiva and sclera are non-icteric and not injected. Cornea within normal limits. Periorbital areas with no swelling, redness, or edema. ENT: Nares patent. No nasal discharge, no septal abnormalities noted. Tympanic membranes are normal and external auditory canals are clear. Oropharynx with no redness, swelling, or masses, exudates, or evidence of obstruction, uvula midline. Mucous membranes moist. Neck: Trachea midline, no thyromegaly or masses palpated, and no cervical lymphadenopathy. Supple, full range of motion without nuchal rigidity, or vertebral point tenderness. No Meningismus. Chest/axilla: Normal chest wall appearance and motion. Nontender with no deformity. No lesions are appreciated. Cardiovascular: Regular rate and rhythm with a normal S1 and S2. No gallops, murmurs, or rubs. Normal PMI, no JVD. No pulse deficits. 19:30 Abdomen/GI: Soft, non-tender, with normal bowel sounds. No distension or tympany. No guarding or rebound. No evidence of tenderness throughout. Back: No spinal tenderness. No costovertebral tenderness. Full range of motion. Skin: Warm, dry with normal turgor. Normal color with no rashes, no lesions, and no evidence of cellulitis. MS/ Extremity: Pulses equal, no cyanosis. Neurovascular intact. Full, normal range of motion. Neuro: Awake and alert, GCS 15, oriented to person, place, time, and situation. Cranial nerves II-XII grossly intact. Motor strength 5/5 in all extremities. Sensory grossly intact. Cerebellar exam normal. Normal gait. Psych: Awake, alert, with orientation to person, place and time. Behavior, mood, and affect are within normal limits. 19:30 Respiratory: the patient does not display signs of respiratory distress, Respirations: normal, Breath sounds: rhonchi, that are mild, are scattered, Respiratory rate: 20 Vital Signs: 17:07 BP 127 / 83; Pulse 90; Resp 20; Temp 101.0(O); Pulse Ox 98% on R/A; Weight 108.86 kg kg (R); Height 5 ft. 11 in. (180.34 cm) (R); Pain 2/10; 17:07 Body Mass Index 33.47 (108.86 kg, 180.34 cm) kg MDM: 23:18 Differential diagnosis: Anemia Anxiety Reaction asthma, Bronchitis CHF exacerbation, 7 Chronic Obstructive Pulmonary Disease Myocardial Infarction pneumonia, Pneumothorax Psychogenic pulmonary edema, Pulmonary Embolism reactive airway disease. Antibiotic administration:. Data reviewed: vital signs, nurses notes, lab test result(s), cardiac enzymes, CBC, electrolytes, Flu: negative Strep negative, Covid negative, EKG, radiologic studies, plain films. Data interpreted: Pulse oximetry: on room air is 98 %. Interpretation: normal. Counseling: I had a detailed discussion with the patient and/or guardian regarding: the historical points, exam findings, and any diagnostic results supporting the discharge/admit diagnosis, lab results, radiology results, the need for outpatient follow up, to return to the emergency department if symptoms worsen or persist or if there are any questions or concerns that arise at home. Response to treatment: the patient's symptoms have resolved after treatment, the patient's blood pressure is in an acceptable range, mental status has returned to baseline, the patient no longer shows bradycardia, the patient is not short of breath, the patient is not tachycardic, the patient's pain is gone, the patient's temperature has normalized. 23:21 Patient medically screened. [facility] 05/07 17:06 Order name: Flu; Complete Time: 19:28 kg 05/07 18:56 Order name: SARS-COV-2 RT PCR; Complete Time: 19:28 [facility] 05/07 19:41 Order name: Basic Metabolic Panel; Complete Time: 21:41 [facility] 05/07 19:41 Order name: CBC with Diff; Complete Time: 21:41 [facility] 05/07 19:41 Order name: LFT's; Complete Time: 21:41 [facility] 05/07 19:41 Order name: Magnesium; Complete Time: 21:41 [facility] 05/07 19:41 Order name: NT PRO-BNP; Complete Time: 21:41 [facility] 05/07 19:41 Order name: PT-INR; Complete Time: 21:41 [facility] 05/07 19:41 Order name: Troponin (emerg Dept Use Only); Complete Time: 21:41 [facility] 05/07 19:42 Order name: Blood Culture Adult (2) [facility] 05/07 19:42 Order name: Rapid Strep; Complete Time: 22:08 [facility] 05/07 19:42 Order name: [place] Screen Profile; Complete Time: 22:36 [facility] 05/07 19:43 Order name: D-Dimer; Complete Time: 21:41 [facility] 05/07 17:58 Order name: Chest Single View; Complete Time: 19:42 [facility] 05/07 19:41 Order name: EKG; Complete Time: 19:42 [facility] 05/07 19:41 Order name: Cardiac monitoring; Complete Time: 21:12 [facility] 05/07 19:41 Order name: EKG - Nurse/Tech; Complete Time: 21:25 [facility] 05/07 19:41 Order name: IV Saline Lock; Complete Time: 21:12 [facility] 05/07 19:41 Order name: Labs collected and sent; Complete Time: 21:12 [facility] 05/07 19:41 Order name: O2 Per Protocol; Complete Time: 21:12 [facility] 05/07 19:43 Order name: Lactate [facility] 05/07 19:43 Order name: Procalcitonin; Complete Time: 23:17 [facility] 05/07 21:53 Order name: Throat Culture [facility] 05/07 19:41 Order name: O2 Sat Monitoring; Complete Time: 21:12 [facility] Administered Medications: 17:16 Drug: Tylenol 1000 mg Route: PO; kg 21:11 Follow up: Response: No adverse reaction em 21:00 Drug: Albuterol 2.5 mg Route: Inhalation; em 21:53 Follow up: Response: No adverse reaction; Marked relief of symptoms em 21:06 Drug: Rocephin (cefTRIAXone) 1 grams Route: IV; Rate: per protocol; Site: right em antecubital; 21:53 Follow up: Response: No adverse reaction; IV Status: Completed infusion; IV Intake: 10mlem 21:06 Drug: AZITHromycin 500 mg Route: IVPB; Infused Over: 1 hrs; Site: right antecubital; em 21:19 Drug: NS 0.9% 1000 ml Route: IV; Rate: 1000 ml; Site: right antecubital; em Disposition Summary: 05/07/21 23:21 Discharge Ordered Location: Home [facility] Problem: an ongoing problem [facility] Symptoms: have improved [facility] Condition: Stable [facility] Diagnosis - Pneumonia, unspecified organism [facility] Followup: [facility] - With: Private Physician - When: 1 - 2 days - Reason: Worsening of condition, Recheck today's complaints, Continuance of care, Re-evaluation by your physician Followup: [facility] - With: Abe Ford MD - When: 1 - 2 days - Reason: Worsening of condition, Recheck today's complaints Discharge Instructions: - Discharge Summary Sheet [facility] - Community-Acquired Pneumonia, Adult [facility] Forms: - Medication Reconciliation Form [facility] - Thank You Letter [facility] - Antibiotic Education [facility] - Prescription Opioid Use [facility] Prescriptions: - albuterol sulfate 90 mcg/actuation Inhalation HFA aerosol inhaler - inhale 2 puff by INHALATION route every 6 hours As needed; 1 Inhaler; Refills: 7 0, Product Selection Permitted - Tessalon Perles 100 mg Oral Capsule - take 1 capsule by ORAL route every 8 hours As needed; 15 capsule; Refills: 0, 7 Product Selection Permitted - Zithromax Z-Hubert 250 mg Oral Tablet - take 1 tablet by ORAL route as directed for 5 days Day 1 - take two (2) tablets [facility] one time. Day 2, 3, 4 , 5 take one (1) tablet once daily.; 6 tablet; Refills: 0, Product Selection Permitted Signatures: Dispatcher [employer] Samy Zaragoza PA PA jmm Munoz, Edgar, RN RN Amadeo Garvey MD MD mh7 Priti Luna RN RN kg Corrections: (The following items were deleted from the chart) 17:58 17:07 Chest Pa And Lat (2 Views)+RAD.RAD.BRZ ordered. EDMS EDMS 18:05 17:07 CORONAVIRUS+MR.LAB.BRZ ordered. EDMS EDMS
[2021-05-07 23:47] VITALS: BP 127/83; TEMP 101; O2SAT 98
== END 2021-05-07 23:38 | disposition home or self-care (01) ==
LOC: ER 15:26
DX: J18.9 Pneumonia, unspecified organism (principal); Z20.822 Contact with and (suspected) exposure to COVID-19; F32.9 Major depressive disorder, single episode, unspecified
CPT/HCPCS: 96365; 93005; 87040 ×2; 87070; 85025; 80048; 36415; 83735; 86308; 85610; 85379; 80076; 87081; 83605; 84484; 84145; 83880; 87804 ×2; 71045; 96375; 99284; U0003; J0456; J0696; J7050; J7030